=== PATIENT | female | born 1975 | race American Indian/Alaskan Native ===

== ENCOUNTER 2023-08-30 21:50 | Inpatient (IN) | payer OTHER ==
[~2023-08-30] VITALS: Ht 152.4 cm; Wt 54.5 kg
[2023-08-30] MEDS ORDERED: methylPREDNISolone Sod Succ 125 MG/2 ML VIAL IV ONE (22:45)
[2023-08-30] MEDS ORDERED: diphenhydrAMINE 50 MG/ML 1 ML VIAL IV ONE (22:45)
[2023-08-30] MEDS ORDERED: NS 1,000 ML IV ONE ×2 (22:45→23:00)
[2023-08-30] MEDS ORDERED: Morphine 4 MG/ML VIAL IV ONE (22:45)
[2023-08-30 22:46] LABS: BASO # 0.1 K/mm3 (0.0-0.2); BASO % 0.3 % (0.0-2.0); EOS # 0.4 K/mm3 (0.0-0.7); GRAN # 17.4 K/mm3 (1.4-6.5); GRAN % 87.2 % (42.2-75.2); HEMATOCRIT 34.1 % (37.0-47.0); HEMOGLOBIN 10.9 g/dl (12.5-16.0); LYMPH # 1.3 K/mm3 (1.2-3.4); LYMPH % 6.3 % (20.0-51.0); MEAN CELL VOLUME 81 fl (80.0-100.0); MEAN CORPUSCULAR HEMOGLOBIN 26 pg (27-31); MEAN CORPUSCULAR HGB CONC 32 g/dl (33.0-37.0); MEAN PLATELET VOLUME 9.7 fl (7.4-10.4); MONO # 0.7 K/mm3 (0.1-0.6); MONO % 3.7 % (1.7-9.3); PLATELET COUNT 336 K/mm3 (130-400); RED BLOOD COUNT 4.19 M/mm3 (4.10-5.30); REDCELL DISTRIBUTION WIDTH-CV 14.6 % (11.5-14.5)
[2023-08-30 23:02] LABS: ALBUMIN 2.8 gm/dL (3.5-5.0); BILIRUBIN,TOTAL 0.3 mg/dL (0.2-1.2); CALCIUM 8.3 mg/dL (8.4-10.2); CREATININE, serum 0.67 mg/dL (0.57-1.11); POTASSIUM 3.6 mmol/L (3.5-4.5); TOTAL PROTEIN 5.8 gm/dL (6.2-8.1)
[2023-08-30] MEDS ORDERED: LR 1,000 ML IV SCH (23:30)
[2023-08-30] MEDS ORDERED: Acetaminophen 325 MG TAB PO PRN (23:30)
[2023-08-30] MEDS ORDERED: Loratadine 10 MG TAB PO SCH (23:30)
[2023-08-30] MEDS ORDERED: diphenhydrAMINE 50 MG/ML 1 ML VIAL IV PRN (23:30)
[2023-08-30] MEDS ORDERED: Vancomycin 1.5 GM,Special Dose/Pharmacy Prepared 1.5 GM in NS 250 ML IV ONE (23:30)
[2023-08-30] MEDS ORDERED: cefTRIAXone 1 G in Water For Injection,Sterile 10 ML IV SCH (23:30)
[2023-08-31] VITALS (8 sets, daily range): BP systolic 93–114; BP diastolic 6–75; PULSE 88–131; TEMP 97.8–99.7
[2023-08-31] MEDS ORDERED: PRENATAL PO (00:09)
[2023-08-31] MEDS ORDERED: ZYRTEC 10MG10 MG PO (00:11)
[2023-08-31] MEDS ORDERED: LAMISIL250 M1 PO (00:11)
[2023-08-31 00:37] LABS: COLLECTION METHOD CLEAN CATCH
[2023-08-31 00:47] LABS: URINE APPEARANCE Clear (CLEAR/HAZY); URINE BLOOD TRACE-LYSED (NEGATIVE); URINE COLOR Straw (YELLOW); URINE GLUCOSE Negative (NEGATIVE); URINE KETONE 2+ (NEGATIVE); URINE NITRATE Negative (NEGATIVE); URINE PROTEIN(semi-quant) Negative (NEGATIVE); URINE UROBILINOGEN 0.2 E.U/dL (0.2-1.0)
[2023-08-31 00:48] LABS: SQUAMOUS EPITHELIAL 0-2 /hpf (0-10); URINE BACTERIA Rare /hpf (NONE SEEN); URINE RBC 0-2 /hpf (0-2)
[2023-08-31] MEDS ORDERED: *Potassium Replacement Protocol MC SCH (02:00)
[2023-08-31] MEDS ORDERED: dilTIAZem 30 MG TAB PO ONE (02:00)
[2023-08-31] MEDS ORDERED: Potassium Bicarbonate/Citrate 20 MEQ Effervescent TAB PO SCH (02:00)
[2023-08-31] MEDS ORDERED: Acetaminophen 325 MG TAB PO PRN (02:15)
[2023-08-31] MEDS ORDERED: methylPREDNISolone Sod Succ 40 MG/ML VIAL IV SCH (02:45)
[2023-08-31] MEDS ORDERED: dexAMETHasone 10 MG/ML VIAL IV SCH (02:58)
--- NOTE | 2023-08-31 05:05 | NUR ---
48 yo female admitted for further care and management of apparent systemic skin reaction to terbinafine, but sepsis secondary to a skin/soft tissue source can not be ruled out. ht 152.4 cm wt 54.5 kg SCr 0.67 with estimated CrCl >60 ml/min half life 8.7 hours Plan: Patient was given a loading dose of vancomycin 1500 mg x1 based on an initial stated weight of 72.7 kg (27.5 mg/kg calculated on actual weight of 54.5 kg); will follow with a maintenance regimen of vancomycin 1000 mg q12h to target a goal trough of 10-15 mcg/ml. Will follow patient's renal function, micro data, and vancomycin levels as indicated to assess for any necessary changes to regimen. Thank you for this dosing consult.
[2023-08-31] MEDS ORDERED: Prenatal Vitamins/Iron/FA TAB PO SCH (09:00)
[2023-08-31 09:15] LABS: HEMOGLOBIN 10.1 g/dl (12.5-16.0); MEAN CELL VOLUME 82 fl (80.0-100.0); MEAN CORPUSCULAR HEMOGLOBIN 25 pg (27-31); MEAN CORPUSCULAR HGB CONC 31 g/dl (33.0-37.0); MEAN PLATELET VOLUME 9.7 fl (7.4-10.4); PLATELET COUNT 331 K/mm3 (130-400); RED BLOOD COUNT 3.98 M/mm3 (4.10-5.30); REDCELL DISTRIBUTION WIDTH-CV 14.7 % (11.5-14.5)
[2023-08-31 09:25] LABS: HEMATOCRIT 32.7 % (37.0-47.0)
[2023-08-31 09:35] LABS: BAND 14 % (0-10); HYPOCHROMIA 3+; LYMPHOCYTE 8 % (20.0-51.0); NEUTROPHILS 78 % (42.0-75.2)
[2023-08-31 09:37] LABS: PLATELET ESTIMATE NORMAL (NORMAL)
[2023-08-31 09:38] LABS: CALCIUM 7.4 mg/dL (8.4-10.2); CREATININE, serum 0.58 mg/dL (0.57-1.11); POTASSIUM 3.7 mmol/L (3.5-4.5)
--- NOTE | 2023-08-31 09:40 | NUR ---
Patient is resting in bed, alert and oriented x 4, tachycardic. Generalized reddened and scaling skin, including scalp. Getting fluids per orders. Assessment completed, meds given, no further needs at this time.
--- NOTE | 2023-08-31 09:51 | NUR ---
Initial visit; Erika thanked Information Developer for looking in on her and seemed pleased when Information Developer offered o pray with her. Information Developer offered prayer for healing and God's blessings along with thanking God for bringing her to [facility]. Erika had tears forming in her eyes.
[2023-08-31] MEDS ORDERED: NYSTATIN100000 U/1 TOP (10:18)
--- NOTE | 2023-08-31 16:22 | NUR ---
shortage worker met with patient and her , Bob Myers# [phone]. Patient is lao speaking, so SW utilized the [employer] per diem interpreter. Patient lives in [place] with her . PCP is [facility] in [place], pharmacy is [facility] in [place]. Patient does not currently have insurance and Jesica with financial counseling came and met with the patient to assist with completing a financial assistance application. Patient reports she does not have a DPOA-HC but was interested in completing one. SW assisted patient with completing the form. Patient appointed her as the primary and her oldest son as the secondary. RN and SW witnessed patient's signature. SW made copies, placed a copy in the chart and provided the original and several copies to the patient. Patient reports she does not currently have any issues affording medications. SW provided information on [facility] in case patient ever needed it as she does not have insurance. Patient does not currently use DME and reports to be independent with [facility]. Patient has a form of transportation to get to and from appointments. Patient would like to return home at time of discharge. Discharge Plan: Home
--- NOTE | 2023-08-31 21:00 | NUR ---
Patient resting in bed with family at bedside. States she has some pain but it is bearable. Denies any other needs or pain at this time. Assessment complete. PICC in right upper arm flushes easily with good blood return from both ports. Call light and personal items in needs. Call light and personal items in reach. Bed in low position.
[2023-09-01] VITALS (11 sets, daily range): BP systolic 14–118; BP diastolic 62–74; PULSE 87–134; TEMP 97.4–98
--- NOTE | 2023-09-01 06:00 | NUR ---
Patient resting in bed. Denies any pain or needs at this time. Call light and personal items in reach. Bed in low position.
[2023-09-01 07:03] LABS: BASO % 0.2 % (0.0-2.0); EOS % 0.1 % (0.0-4.0); GRAN # 13.2 K/mm3 (1.4-6.5); GRAN % 82.1 % (42.2-75.2); LYMPH # 1.9 K/mm3 (1.2-3.4); LYMPH % 11.9 % (20.0-51.0); MEAN CELL VOLUME 82 fl (80.0-100.0); MEAN CORPUSCULAR HGB CONC 31 g/dl (33.0-37.0); MEAN PLATELET VOLUME 9.9 fl (7.4-10.4); MONO # 0.8 K/mm3 (0.1-0.6); MONO % 4.9 % (1.7-9.3); PLATELET COUNT 297 K/mm3 (130-400); REDCELL DISTRIBUTION WIDTH-CV 14.8 % (11.5-14.5)
[2023-09-01 07:08] LABS: HEMOGLOBIN 8.7 g/dl (12.5-16.0); MEAN CORPUSCULAR HEMOGLOBIN 26 pg (27-31)
[2023-09-01 07:18] LABS: CALCIUM 7.8 mg/dL (8.4-10.2); CREATININE, serum 0.57 mg/dL (0.57-1.11); POTASSIUM 3.6 mmol/L (3.5-4.5)
--- NOTE | 2023-09-01 10:00 | NUR ---
PATIENT ALERT AND ORIENTED X4. PATIENT SHIFT ASSESSMENT COMPLETED. PATIENT RASH IS LESS RED THAN IT HAD BEEN PREVIOUSLY ON THE DATE OF ADMISSION. PATIENT LEFT UPPER AND LOWER EXTREMITY EDEMA HAS IMPROVED. LEFT UPPER AND LOWER EXTREMITY IS STILL SWOLLEN +2 PITTING EDEMA. PATIETN SKIN IS NO LONGER HOT TO THE TOUCH. PATIENT DENIES SOA, AND ITCHING IS MILD INTERMITTEN. PATIENT REPORTS HAVING A BURNING SENSATION WITH DEXAMETHASONE IV MEDICATION ABOUT 30 SECONDS. PATIENT DENIES PAIN AT THIS TIME. CALL LIGHT WITHIN REACH. CALL LIGHT WITHIN REACH.BED AT LOWEST POSITION.
[2023-09-01] MEDS ORDERED: Potassium Bicarbonate/Citrate 20 MEQ Effervescent TAB PO SCH (20:00)
--- NOTE | 2023-09-01 20:15 | NUR ---
Patient resting in bed. Denies any pain or needs at this time. Assessment complete. PICC in right upper arm infusing with no complicaitons. Dressing is halway off and PICC line has been retracted about 2-3 inches from original placement. Site cleaned with alcohol wipe, PICC line left as is, and transparent dressing placed over entire site to keep in place and clean. Patient denies any pain. Both ports have good blood return and flush with no complications. Arm circumference at PICC placement is 13 and 1/4 inches. Hospitalist BAN Barr, Charge nurse Wendi, VIK, and Luan Ansari RN notified. IVF stopped at this time. Lotion applied to arms and legs. Call light and personal items in reach. Bed in low position.
[2023-09-02] VITALS (8 sets, daily range): BP systolic 102–121; BP diastolic 66–80; PULSE 67–82; TEMP 97.5–97.9
--- NOTE | 2023-09-02 06:15 | NUR ---
Patient resting in bed with eyes closed. Respirations even and unlabored. PICC line had been retracted about 2-3 inches. Site cleaned, new dressing, IVF stopped, and hospitalist notified. No other events over night. Call light and personal items in reach. Bed in low position.
--- NOTE | 2023-09-02 08:30 | NUR ---
Patient is resting in bed, at the bedside, alert and orineted x4, states she feels better. Reduction in reddeness and inflammation. Continues flaking.
[2023-09-02 08:55] LABS: MEAN CELL VOLUME 81 fl (80.0-100.0); MEAN CORPUSCULAR HGB CONC 32 g/dl (33.0-37.0); MEAN PLATELET VOLUME 9.2 fl (7.4-10.4); PLATELET COUNT 297 K/mm3 (130-400); RED BLOOD COUNT 3.58 M/mm3 (4.10-5.30); REDCELL DISTRIBUTION WIDTH-CV 14.6 % (11.5-14.5)
[2023-09-02 08:59] LABS: HEMATOCRIT 29.1 % (37.0-47.0); HEMOGLOBIN 9.3 g/dl (12.5-16.0); MEAN CORPUSCULAR HEMOGLOBIN 26 pg (27-31)
[2023-09-02] MEDS ORDERED: dexAMETHasone 4 MG TAB PO SCH (09:00)
[2023-09-02] MEDS ORDERED: cefTRIAXone 1 G in Water For Injection,Sterile 10 ML IV SCH (09:00)
--- NOTE | 2023-09-02 09:00 | NUR ---
Patient PICC was checked by [facility] nurse Carol Ann, states it is good to be used. Meds provided.
[2023-09-02 09:11] LABS: CALCIUM 8.1 mg/dL (8.4-10.2); CREATININE, serum 0.64 mg/dL (0.57-1.11); POTASSIUM 3.8 mmol/L (3.5-4.5)
[2023-09-02 09:23] LABS: BAND 6 % (0-10); EOSINOPHIL 1 % (0-4); HYPOCHROMIA 1+; LYMPHOCYTE 22 % (20.0-51.0); NEUTROPHILS 65 % (42.0-75.2); PLATELET ESTIMATE NORMAL (NORMAL)
--- NOTE | 2023-09-02 10:00 | NUR ---
Initial visit; Nurse with patient however Rack Puller was able to wish Erika well and let her know she remains in Rack Puller's prayers.
[2023-09-02] MEDS ORDERED: MEDROL 4MG DOSPA4 MG PO (10:46)
--- NOTE | 2023-09-02 16:06 | NUR ---
Patient and wered provided with discharge information, all questions answered. PICC line was removed by [facility], telemetry discontinued.
== END 2023-09-02 15:00 | disposition home or self-care (01) | DRG 872 ==
LOC: COL.ER 21:50 → MEDICAL 23:21
PROVIDERS: Nurse Practitioner Family; Physician Assistant; ADMIT Internal Medicine
DX: A41.9 Sepsis, unspecified organism (principal); L03.90 Cellulitis, unspecified; L27.0 Generalized skin eruption due to drugs and medicaments taken internally; T49.0X5A Adverse effect of local antifungal, anti-infective and anti-inflammatory drugs, initial encounter; E87.6 Hypokalemia; D64.9 Anemia, unspecified
CPT/HCPCS: C1751; J0696; J1100; J1200; J1650; J2270; J2930; J3370; J7030; J7050; J7120; J8540

== ENCOUNTER → 2023-10-06 | Outpatient (CLI) | payer OTHER ==
[~2023-10-06] MED LIST: LAMISIL250 M1 PO; MEDROL 4MG DOSPA4 MG PO; NYSTATIN100000 U/1 TOP; PRENATAL PO; ZYRTEC 10MG10 MG PO
== END ==
LOC: MC.RAD 13:15
DX: Z12.31 Encounter for screening mammogram for malignant neoplasm of breast (principal)